=== PATIENT | female | born 1980 | race Caucasian/White ===

== ENCOUNTER 2017-01-20 22:13 | Emergency (ER) | payer OTHER ==
[2017-01-20] MEDS ORDERED: LUPUS MED (22:26)
[2017-01-20] MEDS ORDERED: PREDNISONE10 M1 PO (22:26)
[2017-01-20 23:28] LABS: BASO % 0.3 % (0-2); EOS % 2.3 % (0-7); EOSINOPHIL ABSOLUTE COUNT 0.1 tho/cmm (0.0-0.7); HGB-HEMOGLOBIN 13.9 gm/dl (12.0-15.5); LYMPH % 43.9 % (20-45); LYMPH ABSOLUTE COUNT 1.5 tho/cmm (0.8-4.5); MCH (MEAN CORPUSCULAR HGB) 31.2 pg (28.0-32.0); MCHC MEAN CORPUSCULAR HGB CONC 33.9 % (32.0-36.0); MCV (MEAN CELL VOLUME) 91.9 fl (82.0-96.0); MEAN PLATELET VOLUME 10.4 cmc (9.4-12.4); MONO % 6.6 % (0-12); MONOCYTE ABSOLUTE COUNT 0.2 tho/cmm (0.0-1.2); NEUTROPHIL ABSOLUTE COUNT 1.7 tho/cmm (1.6-8.0); NEUTROPHIL-AUTOMATED 1.7 tho/cmm (1.6-8.0); NEUTROPHILS % 46.9 % (40-80); PLATELET COUNT 171 tho/cmm (150-450); RED BLOOD COUNT 4.46 mil/cmm (4.00-5.20); RED CELL DISTRIBUTION WIDTH 12.8 % (12.4-16.4); WHITE BLOOD COUNT 3.5 tho/cmm (4.0-10.0)
[2017-01-20 23:42] LABS: ALBUMIN 3.8 g/dl (3.5-5.0); ALKALINE PHOSPHATASE 77 U/L (33-138); ALT/SGPT 24 U/L (12-78); ANION GAP 12 mmol/L (0-20); AST/SGOT 19 U/L (10-40); BILIRUBIN,TOTAL 0.2 mg/dl (0-1.5); BLOOD UREA NITROGEN 11 mg/dl (6-24); CALCIUM 8.5 mg/dl (8.5-10.5); CARBON DIOXIDE-VENOUS 26 mmol/L (22-32); CHLORIDE 110 mmol/l (96-110); CREATININE 0.98 mg/dl (0.50-1.10); GLUCOSE 95 mg/dL (70-110); POTASSIUM 3.7 mmol/L (3.7-5.1); SODIUM 144 mmol/L (135-145); eGFR VALUE FOR BLACK 85 mL/Min
[2017-01-20] MEDS ORDERED: PROTONIX40 M2 PO (23:46)
== END 2017-01-20 23:52 ==
LOC: EDMED 22:13
PROVIDERS: Emergency Medicine
DX: K92.0 Hematemesis (principal); M32.9 Systemic lupus erythematosus, unspecified; Z90.49 Acquired absence of other specified parts of digestive tract; Z90.710 Acquired absence of both cervix and uterus; Z98.890 Other specified postprocedural states; F17.210 Nicotine dependence, cigarettes, uncomplicated